=== PATIENT | male | born 1940 | race Caucasian/White ===

== ENCOUNTER 2024-02-07 14:41 | Observation (INO) ==
[2024-02-07] MEDS ORDERED: IOPAMIDOL 100 ML BOTTLE IV ONE (14:42)
[2024-02-07 15:07] LABS: POC Calcium, Ionized 1.04 (1.16-1.32); POC Creatinine 1.2 (0.6-1.2); POC Potassium 4.1 (3.3-5.1)
[2024-02-07 15:18] LABS: Basophils # (Auto) 0.04 K/mcL (0.00-0.30); Basophils % (Auto) 0.4 % (0.0-2.0); Eosinophils # (Auto) 0.07 K/mcL (0.00-0.70); Eosinophils % (Auto) 0.6 % (0.0-7.0); Hematocrit 42.3 % (40.1-51.0); Hemoglobin 13.6 g/dL (13.7-17.5); Lymphocytes # (Auto) 2.46 K/mcL (1.50-4.80); Lymphocytes % (Auto) 22.7 % (15.5-49.0); Mean Cell Volume 96.6 fL (80.0-100.0); Mean Corpuscular HGB Conc 32.2 g/dL (31.0-36.0); Mean Platelet Volume 11.4 fL (8.8-12.5); Monocytes # (Auto) 0.98 K/mcL (0.10-0.90); Neutrophils % (Auto) 67.2 % (38.0-78.0); Platelet Count 252 K/mcL (140-440); RBC 4.38 M/mcL (4.63-6.08); Red Cell Distribution Width 13.3 % (11.5-14.5); WBC 10.8 K/mcL (4.5-11.0)
[2024-02-07] MEDS: ASPIRIN 325 MG ENTERIC COATED TABLET PO ONE (15:20)
[2024-02-07] MEDS: ASPIRIN 81 MG TAB.CHEW CHEWED ONE (15:21)
[2024-02-07 15:46] LABS: ALT/SGPT 8 U/L (<40); AST/SGOT 23 U/L (<40); Albumin 4.5 gm/dL (3.2-5.2); Alkaline Phosphatase 112 U/L (39-117); Bilirubin,Direct 0.2 mg/dL (<0.3); Bilirubin,Total 0.7 mg/dL (0.1-1.0); Globulin 2.5 gm/dL (2.2-3.7)
[2024-02-07 16:42] LABS: Appearance,Urine Clear (Clear); Bilirubin,Urine Negative (Negative); Color,Urine Yellow; Culture Indicated,Urine No; Glucose,Urine (UA) Negative (Negative); Ketones,Urine Negative (Negative); Leukocyte Esterase,Urine Negative /uL (Negative); Nitrate,Urine Negative (Negative); Protein,Urine Negative (Negative); Specific Gravity,Urine 1.015 (1.000-1.035); Urine Blood Trace-intact ery/mcL (Negative); Urine RBC 0 /hpf (0-3); Urine Squamous Epithelial Cell 0 /hpf (0-4); Urine WBC 0 /hpf (0-4); Urobilinogen,Urine Normal
[2024-02-07] MEDS ORDERED: LABETALOL HCL 20 MG/4 ML VIAL IV PRN (18:09)
[2024-02-07] MEDS ORDERED: hydrALAZINE 20 MG/ML VIAL IV PRN (18:09)
[2024-02-07] MEDS ORDERED: ONDANSETRON 4 MG/2 ML VIAL IV PRN (19:49)
[2024-02-07] MEDS ORDERED: ACETAMINOPHEN 325 MG TABLET PO PRN (19:49)
[2024-02-07] MEDS: rOPINIRole 0.25 MG TABLET PO SCH (22:03)
[2024-02-07] MEDS: ATORVASTATIN 40 MG TABLET PO SCH (22:03)
[2024-02-07] MEDS: DOCUSATE SODIUM 100 MG CAPSULE PO SCH (22:04)
[2024-02-07] MEDS: buPROPion 150 MG TAB.SR.12H PO SCH (22:04)
[2024-02-07] MEDS: traZODone HCL 50 MG TABLET PO PRN (22:04)
[2024-02-07] MEDS: 0.9 % SODIUM CHLORIDE 10 ML SYRINGE IV SCH (22:04)
[2024-02-07] MEDS: SENNOSIDES 1 TABLET PO SCH (22:04)
[2024-02-08 07:55] LABS: HDL Cholesterol 50 mg/dL (>40); LDL Cholesterol,Calculated 62 mg/dL (<100); Non-HDL Cholesterol 78 mg/dL (<130); Triglycerides 85 mg/dL (<150)
[2024-02-08 08:04] LABS: Estimated Average Glucose(eAG) 126 mg/dL
[2024-02-08] MEDS ORDERED: LABETALOL 5 MG/ML ML IV PRN (09:56)
[2024-02-08] MEDS: OMEPRAZOLE 20 MG CAPSULE PO SCH (10:16)
[2024-02-08] MEDS: ASPIRIN 325 MG ENTERIC COATED TABLET PO SCH (10:17)
== END 2024-02-08 13:15 | disposition home or self-care (01) ==
LOC: ED 14:41 → MEDSUR 19:37 → INTOOBSV 19:37
PROVIDERS: ADMIT Internal Medicine; ATTEND Internal Medicine